=== PATIENT | male | born 1955 | race Caucasian/White ===

== ENCOUNTER 2023-08-05 14:05 | Outpatient (CLI) | payer BC, SELFPAY ==
--- NOTE | 2023-08-05 09:00 | DI.RAD_ITS ---
Exam(s) XR KNEE RT 3V AP,LAT,CARIN EXAM: XR KNEE RT 3V AP,LAT,CARIN CLINICAL HISTORY: RIGHT KNEE PAIN. TECHNIQUE: 2D digital imaging was performed. Three views. COMPARISON: None FINDINGS: BONES: No acute fracture is present. No bony destructive lesion is seen. Small enthesophyte at tibial tubercle. JOINTS: There is severe narrowing of the medial femoral tibial joint, with a [id number] appearance. There is prominent periarticular spurring. Mild spurring at the patellofemoral joint and lateral f emoral tibial joint. No joint effusion is seen. SOFT TISSUE: Posterior calcifications which may represent loose bodies within a popliteal cyst. IMPRESSION: Severe degenerative changes of the medial femoral tibial joint. DATA REPOSITORY: RADIATION DOSE DELIVERED:
--- NOTE | 2023-08-05 09:00 | DI.RAD_ITS ---
Exam(s) XR STANDING ALIGNMENT EXAM: XR STANDING ALIGNMENT CLINICAL HISTORY: BILATERAL KNEE PAIN. TECHNIQUE: 2D digital imaging was performed. Standing AP views were performed from the pelvis throu gh the ankles. COMPARISON: No exams were available for comparison FINDINGS: BONES: No acute fracture is present. No bony destructive lesion is seen. Leg length discrepancy: No significant overall leg length discrepancy. JOINTS: Knees: Severe degenerative changes of the medial femoral tibial joint spaces of both knees, l eft greater than right. Mild varus angulation, left greater than right. The ankle joints are unremarkable. The hip joints are unremarkable. SOFT TISSUE: Normal. IMPRESSION: Severe degenerative changes of both medial femoral tibial joints. No significant leg length discrepancy. DATA REPOSITORY: RADIATION DOSE DELIVERED:
--- NOTE | 2023-08-05 09:00 | DI.RAD_ITS ---
Exam(s) XR KNEE LT 3V AP,LAT,CARIN EXAM: XR KNEE LT 3V AP,LAT,CARIN CLINICAL HISTORY: LEFT KNEE PAIN. TECHNIQUE: 2D digital imaging was performed. Three views. COMPARISON: CR LEFT KNEE 3 VIEW COMPLETE from 11/01/2015 FINDINGS: BONES: No acute fracture is present. No bony destructive lesion is seen. Enthesophyte at tibial tu bercle. JOINTS: There is severe narrowing of the medial femoral tibial joint space, with a [id number] appea cali. There is prominent periarticular spurring as well as varus angulation at the knee. No joint effusion is seen. SOFT TISSUE: Normal. IMPRESSION: Severe degenerative changes of the medial femoral tibial joint. DATA REPOSITORY: RADIATION DOSE DELIVERED:
== END 2023-08-05 14:06 | disposition home or self-care (01) ==
LOC: DIORS 14:05
PROVIDERS: PCP Family Medicine; Visit Provider Physician Assistant
DX: M25.562 Pain in left knee (principal); M25.561 Pain in right knee
CPT/HCPCS: 73562; 77073

== ENCOUNTER 2023-11-15 02:05 | Outpatient (CLI) | payer BC, SELFPAY ==
[2023-11-15 10:35] LABS: HCT 44.5 % (40.0-50.0); HGB 15.3 g/dL (13.5-17.5); MCH 30.2 pg (27.0-33.0); MCHC 34.4 % (32.0-36.0); MCV 88 fL (80-95); MPV 9.5 fL (8.0-11.0); Platelet Count 271 10^3/uL (130-400); RBC 5.06 10^6/uL (4.36-5.78); RDW 11.9 % (11.8-14.1); RDW-SD 38.3 fL; WBC 7.31 10^3/uL (4.4-10.8)
[2023-11-15 10:56] LABS: Anion Gap 11.5 mmol/L (3-11); BUN 29 mg/dL (7-18); CO2 27.5 mmol/L (21.0-32.0); CREATININE 1.2 mg/dL (0.70-1.30); Calcium 9.4 mg/dL (8.5-10.1); Chloride 101 mmol/L (98-107); Estimated GFR 65.87 (mL/min/1.73m2); Glucose 252 mg/dL (74-106); Potassium 3.3 mmol/L (3.5-5.1); Sodium 140 mmol/L (136-145)
[2023-11-16 16:34] LABS: Lab Add On Test DONE
[2023-11-16 16:53] LABS: Hemoglobin A1C 10.6 % (<5.7)
== END 2023-11-15 02:06 | disposition home or self-care (01) ==
LOC: LBO 02:06
PROVIDERS: PCP Family Medicine; Visit Provider Student in an Organized Health Care Education/Training Program
DX: M17.11 Unilateral primary osteoarthritis, right knee (principal); Z01.818 Encounter for other preprocedural examination; E11.9 Type 2 diabetes mellitus without complications
CPT/HCPCS: 36415; 80048; 85027; 83036

== ENCOUNTER 2024-03-23 03:29 | Outpatient (CLI) | payer BC, SELFPAY ==
[2024-03-23 11:37] LABS: HCT 41.8 % (40.0-50.0); HGB 14.3 g/dL (13.5-17.5); MCH 30.4 pg (27.0-33.0); MCHC 34.2 % (32.0-36.0); MCV 89 fL (80-95); MPV 9.6 fL (8.0-11.0); Platelet Count 302 10^3/uL (130-400); RDW 12.4 % (11.8-14.1); RDW-SD 41.1 fL; WBC 6.62 10^3/uL (4.4-10.8)
[2024-03-23 12:14] LABS: Anion Gap 7.9 mmol/L (3-11); BUN 24 mg/dL (7-18); CO2 31.1 mmol/L (21.0-32.0); CREATININE 1.1 mg/dL (0.70-1.30); Calcium 9.5 mg/dL (8.5-10.1); Chloride 103 mmol/L (98-107); Estimated GFR 73.12 (mL/min/1.73m2); Glucose 99 mg/dL (74-106); Potassium 3.3 mmol/L (3.5-5.1); Sodium 142 mmol/L (136-145)
== END 2024-03-23 03:30 | disposition home or self-care (01) ==
LOC: LBO 03:29
PROVIDERS: PCP Family Medicine; Visit Provider Student in an Organized Health Care Education/Training Program
DX: M17.11 Unilateral primary osteoarthritis, right knee (principal); Z01.818 Encounter for other preprocedural examination
CPT/HCPCS: 36415; 80048; 85027

== ENCOUNTER 2024-03-31 05:57 | Day surgery (SDC) | payer BC, SELFPAY ==
[2024-03-31] VITALS (24 sets, daily range): BP systolic 137–180; BP diastolic 70–89; PULSE 58–72; RESP 9–20; TEMP 36.3–36.7; O2SAT 93–99; BMI 29.0
[2024-03-31] MEDS: Celecoxib 200 MG CAP 400 MG PO (06:42)
[2024-03-31] MEDS: Gabapentin 300 MG CAP PO (06:42)
[2024-03-31] MEDS: Acetaminophen 500 MG TAB 1000 MG PO (06:43)
[2024-03-31] MEDS: Lactated Ringers 1,000 ML 80 ML IV (07:05)
--- NOTE | 2024-03-31 07:07 | W.ANESPRE ---
General Info Date of Service Date Performed: 03/31/24 Height: 5 ft 9 in Weight: 89 kg Body Mass Index (BMI): 29.0 Surgical Procedure: Operation Date: 03/31/24 07:40 Proposed Procedure Side Surgeon p Knee Total Arthroplasty, Cementless CR Right Lloyd Marsh MD Actual Procedure Side Surgeon p Knee Total Arthroplasty, Cementless CR Right Lloyd Marsh MD Pre-Op Diagnosis Post-Op Diagnosis Osteoarthritis of right knee Meds Allergies and Home Medications Allergies Allergy/AdvReac Type Severity Reaction Status Date / Time No Known Allergies Allergy Verified 03/31/24 06:34 Home Medication ?Medication ?Instructions ?Recorded ascorbic acid (vitamin C) 500 mg 500 mg PO DAILY 01/06/13 tablet (Vitamin C) multivitamin 1 ea PO DAILY 01/06/13 resveratrol 100 mg capsule 100 mg PO DAILY 05/05/13 amlodipine 10 mg tablet 10 mg PO DAILY #90 tab-caps 12/03/16 atorvastatin 20 mg tablet 20 mg PO DAILY 08/05/23 chlorthalidone 25 mg tablet 25 mg PO DAILY 08/05/23 docusate sodium 100 mg capsule 100 mg PO DAILY 08/05/23 levothyroxine 300 mcg tablet 300 mcg PO DAILY 08/05/23 losartan 100 mg tablet 100 mg PO DAILY 08/05/23 aspirin 325 mg tablet 325 mg PO DAILY 11/15/23 coenzyme Q10 10 mg capsule (Co 10 mg PO ONCE 11/15/23 Q-10) metformin 1,000 mg tablet 1,000 mg PO BID 03/18/24 tirzepatide 2.5 mg/0.5 mL 2.5 mg subcut QWEEK 03/18/24 subcutaneous pen injector acetaminophen 500 mg capsule 500 mg PO DAILY PRN 03/23/24 alpha lipoic acid 300 mg capsule 300 mg PO DAILY 03/23/24 benfotiamine 150 mg capsule 150 mg PO DAILY 03/23/24 chromium picolinate 200 mcg tablet 200 mcg PO DAILY 03/23/24 ibuprofen 200 mg tablet 200 mg PO Q6H PRN 03/23/24 mecobalamin (vitamin B12) 1,000 1,000 mcg PO DAILY 03/23/24 mcg chewable tablet (B12 Active) melatonin 10 mg capsule 10 mg PO HS PRN 03/23/24 milk thistle 175 mg tablet 175 mg PO DAILY 03/23/24 Current Visit Medications: Current Medications Generic Name Dose Route Start Last Admin Trade Name Carmen PRN Reason Stop Dose Admin Acetaminophen 1,000 mg 03/31/24 06:00 03/31/24 06:43 Acetaminophen 500 Mg Tab PO 04/29/24 23:59 1,000 mg PREOP GLADYS Administration Celecoxib 400 mg 03/31/24 06:00 03/31/24 06:42 Celecoxib 200 Mg Cap PO 04/29/24 23:59 400 mg PREOP GLADYS Administration Gabapentin 300 mg 03/31/24 06:00 03/31/24 06:42 Gabapentin 300 Mg Cap PO 04/29/24 23:59 300 mg PREOP GLADYS Administration Ringer's Solution 1,000 mls @ 80 mls/hr 03/31/24 06:00 IV 04/29/24 23:59 INFUSION GLADYS Cefazolin Sodium/Dextrose 2 gm in 50 mls @ 100 mls/hr 03/31/24 06:00 Ancef Duplex IVPB 04/29/24 23:59 PREOP GLADYS Tranexamic Acid/Sodium Chloride 1,000 mg in 100 mls @ 600 mls/hr 03/31/24 06:00 IVPB 04/29/24 23:59 PREOP GLADYS IV Miscellaneous Supplies 1 each 03/31/24 06:00 Iv Access IV 04/29/24 23:59 DIRECTED GLADYS Sodium Chloride 0 ml 03/31/24 06:00 Normal Saline Flush 10 Ml Syr IV 04/29/24 23:59 PRN PRN Sodium Chloride 0 ml 03/31/24 06:00 Normal Saline 10 Ml Vial IJ 04/29/24 23:59 DIRECTED PRN Sterile Water 0 ml 03/31/24 06:00 Water,Injection,Sterile 10 Ml Vial IJ 04/29/24 23:59 DIRECTED PRN PFSH Active Problems Active Problems: Problem Status Onset Code Diabetes Chronic E11.9 Essential hypertension Acute 03/31/13 I10 Osteoarthritis of left knee Acute M17.12 Osteoarthritis of right knee Acute M17.11 Medical History Medical History Tubular adenoma 06/12; 2 tubular adenomas Sleep apnea (05/24/14) Polyp of colon 06/12; 2 tubular adenomas Nevus, 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 EARL Repair of inguinal hernia DR. LOCKE Excision, Skin Mass Colonoscopy - IV Sedation 06/17/2006 Tobacco Smoking/Tobacco Use Status: Former Tobacco Use Alcohol Alcohol Intake: current Alcohol intake frequency: holidays/special occasions only Substance Use Substance use: Never Substance use type: does not use Vital Signs and Lab Results Vital Signs Most Recent Vital Signs in EMR: Most Recent Vital Signs Temp Pulse Resp BP Pulse Ox 36.7 C 72 16 137/71 99 03/31/24 06:10 03/31/24 06:10 03/31/24 06:10 03/31/24 06:10 03/31/24 06:10 Point of Care Results Point of Care Results: Finger Stick Blood Glucose 104 03/31/24 06:47 Lab Results Blood Type / Crossmatch: No Data to Display Complete Blood Count: White Blood Count 6.62 10^3/uL (4.4-10.8) 03/23/24 11:16 Red Blood Count 4.70 10^6/uL (4.36-5.78) 03/23/24 11:16 Hemoglobin 14.3 g/dL (13.5-17.5) 03/23/24 11:16 Hematocrit 41.8 % (40.0-50.0) 03/23/24 11:16 Platelet Count 302 10^3/uL (130-400) 03/23/24 11:16 Complete Metabolic Panel: Sodium 142 mmol/L (136-145) 03/23/24 11:16 Potassium 3.3 mmol/L (3.5-5.1) L 03/23/24 11:16 Chloride 103 mmol/L (98-107) 03/23/24 11:16 Carbon Dioxide 31.1 mmol/L (21.0-32.0) 03/23/24 11:16 BUN 24 mg/dL (7-18) H 03/23/24 11:16 Creatinine 1.1 mg/dL (0.70-1.30) 03/23/24 11:16 Est GFR (CKD-EPI 2020) 73.12 (mL/min/1.73m2) 03/23/24 11:16 Calcium 9.5 mg/dL (8.5-10.1) 03/23/24 11:16 Glucose 99 mg/dL (74-106) 03/23/24 11:16 Liver Function Panel: No Data to Display Coagulation Panel: No Data to Display Cardiac Panel: No Data to Display Arterial Blood Gas: No Data to Display Venous Blood Gas: No Data to Display Pancreas Panel: No Data to Display Thyroid Panel: No Data to Display Infectious Disease: No Data to Display Blood Cultures: No Data to Display Toxicology Panel: No Data to Display Anesthesia Assessment and Plan Anesthesia History Personal History: No History of Anesthesia Complications Family History: No Family History of Anesthesia Complications Exercise Tolerance Exercise Tolerance: Metabolic Equivalents>4 Pertinent Negatives Pertinent Negatives: No Symptoms of GERD Cardiac & Pulmonary Exam Cardiac Exam: Normal S1/S2 Heart Sounds Pulmonary Exam: Clear Bilateral Breath Sounds Implantable Cardiac Device Does patient have a Pacemaker or an ICD?: No Airway Exam Known Difficult Airway: No Mallampati Class: 1 Mouth Opening: Normal (> 3cm) Thyromental Distance: Greater than 3 cm Neck Range of Motion: Full ROM Neck Circumference: Normal Teeth Condition: Normal Dentition ASA Classification ASA Score: ASA 2 Emergency Case?: No NPO Status NPO Status: NPO Clears >2 hours, Solids >8 hours Anesthesia Plan Resuscitation Status: Full Code Anesthesia Technique: Spinal Anesthesia Airway Planned: Natural Airway Pain Management: Surgeon and patient request nerve block Monitors Used: Standard Monitors
--- NOTE | 2024-03-31 07:20 | DSE_ITS ---
Date of service: 03/31/24 Time of Service: 07:26 Discharge Plan Disposition Patient Disposition: Home Condition: Good Discharge Details Reason For Visit: Left knee DJD Attending Provider: Lloyd Marsh Primary Care Provider: Kam Parker Home Meds and New Rx's Prescriptions: New acetaminophen 500 mg tablet 1,000 mg PO Q8H PRN Qty: 90 0RF Rx Instructions: Take two tablets up to every 8 hours as needed for pain docusate sodium [Colace] 100 mg capsule 100 mg PO BID Qty: 30 0RF pantoprazole 40 mg tablet,delayed release (DR/EC) 40 mg PO DAILY Qty: 14 0RF gabapentin 300 mg capsule 300 mg PO QHS Qty: 14 0RF Rx Instructions: Take one tablet at bedtime oxycodone 5 mg tablet 5 mg PO Q4H PRNQty: 18 0RF Rx Instructions: Take one tablet up to every 4 hours as needed for severe postoperative pain Continued coenzyme Q10 [Co Q-10] 10 mg capsule 10 mg PO ONCE aspirin 325 mg tablet 325 mg PO DAILY mecobalamin (vitamin B12) [B12 Active] 1,000 mcg tablet,chewable 1,000 mcg PO DAILY melatonin 10 mg capsule 10 mg PO HS PRN benfotiamine 150 mg capsule 150 mg PO DAILY milk thistle 175 mg tablet 175 mg PO DAILY Rx Instructions: give with meal/snack alpha lipoic acid 300 mg capsule 300 mg PO DAILY chromium picolinate 200 mcg tablet 200 mcg PO DAILY levothyroxine 300 mcg tablet 300 mcg PO DAILY docusate sodium 100 mg capsule 100 mg PO DAILY atorvastatin 20 mg tablet 20 mg PO DAILY chlorthalidone 25 mg tablet 25 mg PO DAILY losartan 100 mg tablet 100 mg PO DAILY ascorbic acid (vitamin C) [Vitamin C] 500 MG tablet 500 mg PO DAILY multivitamin 1 EACH capsule 1 ea PO DAILY resveratrol 100 MG capsule 100 mg PO DAILY amlodipine 10 MG tablet 10 mg PO DAILY Qty: 90 metformin 1,000 mg tablet 1,000 mg PO BID tirzepatide 2.5 mg/0.5 mL pen injector 2.5 mg subcut QWEEK Rx Instructions: for 4 weeks Discontinued ibuprofen 200 mg tablet 200 mg PO Q6H PRN acetaminophen 500 mg capsule 500 mg PO DAILY PRN No Action meloxicam 15 mg tablet 15 mg PO DAILY Qty: 30 0RF Discharge Instructions Additional Instructions: Total Knee Discharge Instructions Activity: The most important activity is to walk and to work on gentle motion (both flexion and extension). You should try to take short walks a few times a day. It is important that when resting you work on keeping the knee straight. Avoid putting a pillow behind the knee as this will encourage flexion. Work on range of motion exercises as provided by Physical Therapy. - Start outpatient physical therapy within 2 weeks. - You should wear the CHUY hose on both legs for 2 weeks. You may remove these at night. You may also use any compression sock in place of the CHUY hose. - Utilize [employer] to review exercises, see videos on exercises and obtain basic information pertaining to your surgery and your recovery. Dressing: Remove the Avni wrap by 2 days after your surgery and put on the CHUY stocking given to you from the hospital. Keep the surgical dressing (underneath the AVNI wrap) in place for at least one week. After the first week it may be removed and replaced with light gauze and tape or nothing. The wound and dressing may get wet after 3 days but avoid soaking the dressing or otherwise it will need to be changed. Many people prefer covering the dressing with cling wrap (saran wrap) to minimize it from getting soaked. If it gets wet, just pat dry. If it starts to peel off then it will need to be changed. Medications: - You should take Tylenol and anti-inflammatory Celebrex as your primary pain control medications. If the Celebrex is too expensive or not covered, please call the office for another alternative (Advil/Ibuprofen or Naproxen/Aleve) - You have been prescribed a stronger pain medication Oxycodone for breakthrough pain, take as needed as prescribed. - You have also been prescribed a stomach acid reduction agent Pantoprozole to help reduce stomach acid and reflux. - You have been prescribed Gabapentin to take at night for restlessness and nerve pain. - You will continue to take your daily Aspirin 325mg once a day for DVT prevention unless instructed otherwise. - If you have constipation you should take Colace (which has been prescribed) or Miralax (which is available [id number]). It takes most people 3-4 days to have a bowel movement. Follow-up: 2 weeks If you have any acute concerns or questions, please do not hesitate to contact the office at [phone]. You may contact Dr. Marsh with any questions after hours through the hospital at [phone] or on his cell phone at [phone]. Stand Alone Forms: Anesthesia Discharge InstAmy, Nerve Block Instructions, Paula Sahni ([facility]) Referrals: Lloyd Marsh MD [ [facility] STAFF PHYSICIAN] - 04/13/24 10:00 am Equipment/Supplies: Walker Activity:: Elevate Remove Dressings/Wound Care:: Do Not Remove Shower/Bathe:: Cover Diet:: As Tolerated Discharge Orders Discharge Orders: Discharge Order (Routine); Ordered 03/31/24 Ordered By: Meme Jennings Discharge Data Discharge Date/Time-TO BE ENTERED AT DEPARTURE: 03/31/24 12:35 DS: Summary Time Spent with Patient providing and/or coordinating discharge services: Less than 30 minutes Status at Discharge Functional status at discharge: uses cane/walker Overall status at discharge: patient is progressing back to baseline Mental Status: mental status grossly normal Speech and Movement: speech and movement normal Mood: congruent mood Affect: normal affect Quality:SDOH Health Related Social Needs: No Data to Display Exam Psych Mental Status: mental status grossly normal Speech and Movement: speech and movement normal Mood: congruent mood Affect: normal affect DS: Data Vitals/I&O Vitals and I&O: Vital Signs Temperature 98.1 F 03/31/24 06:10 Pulse 72 03/31/24 06:10 Pulse Rhythm Regular 03/31/24 06:10 Respiratory Rate 16 03/31/24 06:10 Respiratory Depth Normal 03/31/24 06:10 Blood Pressure 137/71 03/31/24 06:10 Pulse Oximetry 99 03/31/24 06:10 Oxygen Delivery Method Room Air 03/31/24 06:10 Oxygen Flow Rate 0 03/31/24 06:10 Pain Level 3 03/31/24 06:10 Intake & Output 03/30/24 03/30/24 03/31/24 11:59 23:59 11:59 Weight 192 lb 15.988 oz 196 lb 3.382 oz PFSH All Active Problems (Updated 03/31/24 @ 15:30 by Kyle Diaz RN) History of total right knee replacement (Acute 03/31/24) Diabetes (Chronic) Essential hypertension (Acute 03/31/13) Osteoarthritis of left knee (Acute) Steroid injection: 08/05/2023 Medical History (Updated 03/31/24 @ 15:30 by Kyle Diaz RN) Tubular adenoma 06/12; 2 tubular adenomas Sleep apnea (05/24/14) Polyp of colon 06/12; 2 tubular adenomas Nevus, 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 EARL Repair of inguinal hernia DR. LOCKE Excision, Skin Mass Colonoscopy - IV Sedation 06/17/2006 Family History Mother Heart disease CABG Father Hypertensive disorder, systemic arterial Hyperlipidemia Brother Personal history of malignant neoplasm PROSTATE Brother Parkinson's disease Brother No problems noted. Grandfather Heart disease Grandfather No problems noted. Grandmother Heart disease Grandmother Hypertensive disorder, systemic arterial Heart disease Social History Smoking/Tobacco Use Status: Former Tobacco Use Quit Date: 07/01/95 Smoking risk assessment performed?: Yes Alcohol Intake: current Alcohol Intake frequency: holidays/special occasions only Drug use: Never Substance use type: does not use Housing: house Additional Social history: [facility] Time Spent with Patient Time Spent with Patient: <45 minutes Time was spent: preparing to see the patient(eg.review tests), obtaining and/or reviewing separately otained hiistory and indepentently interpreting results
[2024-03-31] MEDS: ceFAZolin 2 GM/50 ML BAG IVPB (07:34)
[2024-03-31] MEDS: TRANEXAMIC ACID/SOD. CHL. 1,000 MG/100 ML BAG 600 MG IVPB (07:48)
--- NOTE | 2024-03-31 09:11 | W.PM.OP ---
Date of service: 03/31/24 Time of Service: 07:45 Operative Note Operative Note DATE OF PROCEDURE: 03/31/24 PRE-OP DIAGNOSIS: Right Knee Osteoarthritis POST-OP DIAGNOSIS: same PROCEDURE: Right Total Knee Replacement SURGEON: Lloyd Marsh PARTNERSHIP MARKETING MANAGER: Meme Jennings ANESTHESIA TYPE: Spinal Refer to Anesthesia Record ESTIMATED BLOOD LOSS: 100 PATHOLOGY: none sent TOURNIQUET TIME: 0 COMPLICATIONS: None Patient was transported to: PACU Patient's condition: stable Implants: 1. Depuy Attune Cementless Cruciate Retaining Femoral Component, Size 7 2. Depuy Attune Cementless Fixed Bearing Tibial Component, Size 6 3. Depuy Attune 7x7 CR/FB Poly 4. Depuy Attune Patellar Component, Size 38 Indications: I have seen Dilip in clinic for symptoms of knee arthritis, confirmed with radiographic findings. He has exhausted nonoperative methods and was having significant limitations in daily function and desired better function and less pain. I discussed the technical details of a knee replacement. I explained the risks of the procedure to include, but not limited to, bleeding, infection, pain, stiffness, fracture, damage to nerves and vessels, damage to muscles and tendons, loosening, need for repeat procedure, blood clot and cardiopulmonary demise. Despite these risks, Dilip elected to proceed. Findings: There was significant signs of arthritis throughout the knee, mostly in the medial compartment. Procedure Description: Dilip was greeted in the preoperative holding area where the correct side was identified and marked. The consent was reviewed with the patient and signed. The history and physical was updated. All questions were answered. Preoperative medications were administered: Acetaminophen 1000mg, Celebrex 400mg, and Gabapentin 300mg. An adductor canal block was then administered by the anesthesia team in the PACU. Dilip was taken back to the operating room. A spinal anesthestic was then administered. The patient was placed into the supine position on the operating room table. A nonsterile tourniquet was placed high onto the leg but only used for cementing. Posts were placed for positioning during the procedure. All bony prominences were well padded. Prophylactic antibiotics in the form of Cefazolin were administered. 1g of Tranxemic Acid was given intravenously within 30 minutes of incision. The right leg was then prepped with Chloraprep and draped in a standard fashion with impervious stockinette. A second prep with Chloraprep was performed prior to application of Iodine impregnated skin protection. A timeout to confirm correct identity, side and site, procedure, allergies, anesthesia, and medical concerns was performed. With the knee in some flexion, a midline incision was made overlying the knee. Full thickness skin flaps were raised once the extensor mechanism was encountered. These were raised medially and laterally. Any bleeding was controlled with electrocautery. Once the extensor mechanism was fully exposed, a medial parapatellar arthrotomy was performed in a flexed position. All bleeding from the arthrotomy and the geniculate arteries was coagulated. A medial subperiosteal peel was performed with electrocautery to the midcoronal plane. Due to the significant varus deformity the entire medial tibial plateau was exposed. The fat pad was removed while keeping the patellar tendon protected. The anterior distal femur synovium was removed for later visualization. The ACL and PCL were resected and the anterior horn of the lateral meniscus was transected. The knee was then flexed with the patella everted. Large osteophytes from the tibia were removed. Large osteophytes from the femur were removed. Using a step drill, and based on preoperative templating, the femoral canal was entered. This was done with a step drill without any difficulty. The intramedullary distal femoral cut guide was inserted, set to a 5 degree valgus cut and 9mm cut thickness. The distal femoral cut guide was then held in position and pinned. With the soft tissues protected, the distal cut was performed. This was passed over a few times to ensure a planar cut. I then turned attention to the tibia. The extramedullary guide was placed onto the leg. The distal aspect was slid medial to adjust for position of center of ankle and stay in line with shaft of the tibia. Approximately 3-5 degrees of posterior slope was kept in the proximal cutting guide. The center of the guide was aligned with the PCL. The stylus was used to assess cut thickness. The medial side, most involved side, was set for a 4mm cut, corresponding to 9mm laterally. This was then held in position and pinned into place with 2 additional pins and a cross pin for stability. The medial and lateral collateral ligaments were protected and the cut was performed. With this completed, it was assessed and noted to be of appropriate dimensions. The guide was removed. A spacer block was inserted and the knee was brought into extension. The 6mm spacer block provided full extension, without hyperextension and with stability of both the medial and lateral collateral ligaments was assessed. The pins from the femur and the tibia were then removed. The distal femur was then sized. The anterior stylus was placed onto the lateral ridge of the anterior femur. This indicated a size 7 femur. The external rotation of the guide was adjusted to 3 degrees to match the epicondylar axis, perpendicular to Judi?s line. The 4-in-1 cutting guide was the placed. The posterior medial femur cut was evaluated and appeared of good thickness. The spacer block was inserted underneath the cutting guide and stability was confirmed in 90 degrees of flexion. An ish wing was used to confirm appropriate position of the anterior cut to avoid notching. This cutting guide was ensured to be flush on the cut surface and then pinned into place with headed pins. While protecting the soft tissues, quad tendon, and collateral ligaments, the anterior and posterior cuts were performed with a saw. The central two pins were removed and the posterior and anterior chamfers were cut next. The notch-cutting guide was placed. This was pinned to lateralize the femoral component as much as possible while keeping it flush on the cut surface. This was then pinned into position. A reciprocating saw was used to make the notch cut. A rasp smoothed the cut surfaces. The medial and lateral menisci were removed. A trial femoral component was then inserted, impacted down to the cut surfaces, and the lug holes were drilled. A provisional trial tibial component was placed and the knee was brought through range of motion. The polyethylene was trialed until there was good flexion and extension with excellent stability to the medial and lateral collaterals. The patella was tracking without thumbs. A size 7mm polyethylene component provided the best range of motion and stability with less than 2mm gapping with medial and lateral stress and full extension without significant hyperextension. The tibial cut surface was fully exposed. The tibia was then sized as a 6. The tibia had been previously marked during trialing to correspond to the center of the tibial component to help with rotation. The trial was aligned to this dilip, approximately rotated to the medial 1/3rd of the tibial tubercle. The trial was pinned into place. The tibia was prepared with a reamer and a keel punch and lug holes. The knee was then brought into extension and the patella was measured as 26mm. Using the patellar clamp and cut guide, this was resected to a flat surface with at least 13mm of thickness remaining. The size 38 patella fit the best. This was oriented and then clamped into position. The lugs were drilled. The trial components were removed. The final components were opened on the back table. The periosteal and capsular tissues, especially posteriorly, around the knee were then systematically injected with a periarticular cocktail consisting of 246mg of Ropivacaine, 0.5mg of Epinephrine, 0.08mg of Clonidine, and 30mg of Ketorolac, diluted to 100cc. On the back table, with the implants opened, the cement was mixed. One batch of high viscosity cement was prepared with vacuum assistance. After the cement was ready a small amount was placed on the cut surface of the patella and the patellar button was clamped into position and held. While the cement was hardening, the cementless knee components were placed. Starting with the tibial component, the tibia was subluxed anteriorly and the lug holes of the component were lined up. The tibia was then impacted with an impactor and mallet until the tibial component was in contact with the tibia. The final polyethylene component was inserted. Then, the femoral component was inserted. The lug holes were aligned and the component was impacted into position. The knee was irrigated with Surgiphor Betadine solution. This was allowed to sit in the knee for 3 minutes and then it was irrigated out with saline. After the cement had finally cured, approximately 15min, the clamp was removed from the patella and the knee was taken through range of motion. The patella was tracking with a no-thumbs technique. The capsule was then reapproximated with a No. 1 Vicryl at multiple locations. The capsule was finally closed with a No. 2 Stratafix, barbed suture. The second dosing of 1g TXA was started. Deep tissues were then reapproximated with 0 Vicryl and 2-0 Vicryl. The skin was closed with a running 3-0 Monocryl in a subcuticular fashion. This was reinforced with skin glue. A Mepilex silver dressing was applied along with a [id number] LINDA wrap. A CryoCuff was applied. Dilip was transferred to the hospital bed without difficulty an suffering no apparent complication. Dilip has a good prognosis. Physical therapy will start today and without restrictions, weight-bearing as tolerated. His home dose of Aspirin 325mg daily will be used for DVT prophylaxis.
[2024-03-31] MEDS: Normal Saline 10 ML VIAL IJ (09:29)
[2024-03-31] MEDS: HYDROmorphone 2 MG/ML SYR IVP ×2 (09:29→10:04)
--- NOTE | 2024-03-31 10:31 | PT.INIE ---
PT Notes Visit Reasons: Left knee DJD Physical Therapy Day Surgery Initial Evaluation Date: 03-31-2024 Referring Doctor: Dr Marsh PT Orders: PT CONSULT: PT evaluation s/p ortho surgery Precautions: WBAT RLE, Patient Profile/Admitting Diagnosis: Pt is 68 yo male presenting s/p elective Right TKA by Dr Marsh on 03-31-2024 under spinal anesthesia PMHX: OA B knees,HTN, DM Social History/Home Situation: lives with in 2 story home with 2 steps to enterwith no railing. His bedroom and office are on the second floor. His only bathroom is on the first floor. He has 13 steps with left rail to ascend the stairs. He reports he will be staying on the first floor to be closer to the bathroom. He reports being an active walker and swimmer as well as calisthenics. Equipment Owned/DME: no equipment/ fitted and issued for FWW with 5wheels Subjective: Pt reports foggy sensation but no dizziness. Pt reports he has a circular driveway which he will be able to walk. Objective: General Observation: Awake male semi-reclined on stretcher with CryoCuff to right knee. Mental Status: Alert and oriented x 4 Pain: right knee 2/10 with ambulation after medication; prior to medication patient reported to nurse 4?5/10 ROM: Right Upper Extremity: WNL Left Upper Extremity: WNL Right Lower Extremity: hip and ankle WNL; knee 5-98 degrees Left Lower Extremity: WNL Strength: Right Upper Extremity: 5/5 Left Upper Extremity: 5/5 Right Lower Extremity: hip 3/5 ,knee extension 3 -/5, flexion 3 -/5 ankle 4/5; patient demonstrates slight quad lag with straight leg raise in limited range. Patient demonstrates compensatory use of glutes and hamstrings during quad set. Left Lower Extremity: 5/5 Sensation:intact Bed Mobility/Transfers: Supine to sit independent Sit to stand independent Stand to sit independent Bed to chair modified independent with FWW Gait: Ambulated with FWW supervision 150 feet reciprocal pattern with slight antalgic gait on the right. Stairs: 2 stairs with rolling walker placed on top step ascending with supervision step to pattern; descending step to pattern patient utilized rail for first step to simulate door frame at home and then FWW for second step Balance: Static Sitting: Normal Dynamic Sitting: Good Static Standing: Good Dynamic Standing: Good with FWW Special Tests: Mobility Limitations Standardized Measure [facility] 6 clicks Basic Mobility Inpatient Short Form: Raw Score: 23 CMS Score: 11.20% Informed Consent/Education: Patient instructed in purpose of PT consult. Packet containing TKA exercise protocol has been given to patient. Education and training on initial set of exercises that can be done at home have been completed with patient. Assessment: Patient presents with clinical signs and symptoms consistent with current/admitting diagnoses that have resulted to mobility limitations, gait instability, generalized weakness, and impairment of motor control as demonstrated by the following impairment level findings: 1. Decreased strength to right knee major muscle groups 2. Impaired standing balance 3. Limitation of joint range of motion in right knee Impairments are contributing to the following functional limitations: 1. Inability to safely ambulate without assistive device 2. Increase completion time for mobility ADL performance 3. Increased fall risk Patient is assessed as a low complexity based on the following: History: 68-year-old male with impairment level findings, functional limitations, and past medical history as indicated above Examination: Demonstrable impairment in strength, balance, and mobility level with underlying impairments and functional limitations as documented above Presentation: stable Decision Making: low Goals: N/A. Plan of Care/Treatment Plan: N/A. DISCHARGE RECOMMENDATIONS: Home completing HEP and outpatient PT as scheduled TREATMENT CODE/TIME: 49365 Thank you for the opportunity to participate in the care of this patient. Please sign an return this page within 30 days if you agree with the above POC. Thank you! Physician Signature Date [facility]
[2024-03-31] MEDS: oxyCODONE 5 MG TAB PO (10:43)
--- NOTE | 2024-03-31 11:21 | W.ANESNERVE ---
Nerve Block Single Injection Procedure Date and Time Date Performed: 03/31/24 Procedure Start: 07:15 Location Where Procedure Performed Procedure Location: Day Surgery Unit Reason Performed: Postoperative Analgesia Requesting Provider: Lloyd Marsh Timeout Performed Timeout Performed: Yes Monitoring Used ECG, Blood Pressure, SpO2 and See EMR for corresponding vital signs Sterility Sterility: Hand Hygiene, Surgical Cap, Surgical Mask, Sterile Gloves and Chlorhexidine Sedation Given During Procedure Sedation Given (Indicate Dose Given): No Sedation given Patient Mental Status Patient Mental Status: Awake Nerve Block 1st Nerve Block: Laterality: Right Block Type: Adductor Canal Ultrasound Image Saved?: Yes Needle / Catheter Used: 100mm SonoPlex II Local Anesthetic Bolus (Indicate Dose Given): Lidocaine used for local infiltration of skin, Injected in 3-5ml increments after negative blood aspiration, Bupivacaine 0.25% Dose:: 10ml and Exparel Dose:: 10ml Additives (Indicate Dose Given): None Ultrasound: Sterile probe cover and gel used Nerve Stimulator: Not Used Paresthesia: None Procedure Tolerated: No Complications and Patient tolerated well Procedure Outcome: Successful Performed By: Alvin Rich
--- NOTE | 2024-03-31 14:38 | W.ANESPOSTOP ---
Postoperative Evaluation Date, Time and Location Date Performed: 03/31/24 Time Performed: 10:30 Patient Location: Day Surgery Unit Vital Signs Most Recent Imported Vital Signs: Most Recent Vital Signs Temp Pulse Resp BP Pulse Ox 36.5 C 60 16 151/71 H 96 03/31/24 11:25 03/31/24 11:25 03/31/24 11:25 03/31/24 11:25 03/31/24 11:25 Pain Score Most Recent Pain Score: Most Recent Pain Score Pain Level 2 03/31/24 11:25 Assessment Mental Status: Awake (Alert & Oriented to Patient Baseline) Airway and Respiratory Function: Patent airway with normal (patient baseline) respiratory exam Cardiovascular Function: Hemodynamically Stable Hydration Status: Adequately Hydrated Nausea & Vomiting: No Nausea or Vomiting Pain: Pain is tolerable per patient Peripheral Nerve Block: Regional nerve block not resolved at time of post operative discharge
== END 2024-03-31 12:35 | disposition home or self-care (01) ==
PROVIDERS: PCP Family Medicine; Visit Provider Student in an Organized Health Care Education/Training Program
PROC: (CPT 27447; principal; 2024-03-31 07:30)
DX: M17.11 Unilateral primary osteoarthritis, right knee (principal); I10 Essential (primary) hypertension; E11.9 Type 2 diabetes mellitus without complications; Z79.84 Long term (current) use of oral hypoglycemic drugs
CPT/HCPCS: 27447; 76942; 97161; 97530; C1776; C9290; J0665; J0690; J1100; J1171; J2250; J2401; J2405; J2704

== ENCOUNTER 2024-04-13 11:44 | Outpatient (CLI) | payer BC, MEDICARE, SELFPAY ==
--- NOTE | 2024-04-13 10:51 | DI.RAD_ITS ---
Exam(s) XR KNEE RT 1V XR STANDING ALIGNMENT EXAM: XR STANDING ALIGNMENT and XR knee RT 1 V CLINICAL HISTORY: s/p TKR. TECHNIQUE: 2D digital imaging was performed. Five images were obtained. COMPARISON: CR XR KNEE LT 3V AP,LAT,CARIN from 08/05/2023 CR XR STANDING ALIGNMENT from 08/05/2023 CR XR KNEE RT 3V AP,LAT,CARIN from 08/05/2023 FINDINGS: BONES: The hips are well maintained. The patient now has a right total knee replacement. The orthop edic hardware appears in good position. No suspicious lucencies are seen in or about the orthopedic hardware. There are marked degenerative changes seen in the left knee characterized by joint space n arrowing and osteophytes. The findings are most marked in the medial femoral tibial joint. The ankl es are well maintained.There is no significant leg length discrepancy. SOFT TISSUE: Normal. IMPRESSION: 1. Interval placement of a right total knee replacement. 2. Marked osteoarthritis of the left knee. DATA REPOSITORY: RADIATION DOSE DELIVERED:
== END 2024-04-13 11:45 | disposition home or self-care (01) ==
LOC: DIORS 11:45
PROVIDERS: PCP Family Medicine; Visit Provider Physician Assistant
DX: Z96.651 Presence of right artificial knee joint (principal); Z47.1 Aftercare following joint replacement surgery
CPT/HCPCS: 73560; 77073

== ENCOUNTER 2024-05-11 16:04 | Outpatient (CLI) | payer BC, SELFPAY ==
[2024-05-11 15:25] LABS: HCT 40.7 % (40.0-50.0); HGB 13.8 g/dL (13.5-17.5); MCH 29.9 pg (27.0-33.0); MCHC 33.9 % (32.0-36.0); MCV 88 fL (80-95); Platelet Count 307 10^3/uL (130-400); RBC 4.62 10^6/uL (4.36-5.78); RDW 12.9 % (11.8-14.1); RDW-SD 41.6 fL; WBC 7.25 10^3/uL (4.4-10.8)
[2024-05-11 16:12] LABS: Anion Gap 10.5 mmol/L (3-11); BUN 29 mg/dL (7-18); CO2 27.5 mmol/L (21.0-32.0); CREATININE 1.1 mg/dL (0.70-1.30); Calcium 9.4 mg/dL (8.5-10.1); Chloride 106 mmol/L (98-107); Estimated GFR 73.12 (mL/min/1.73m2); Glucose 109 mg/dL (74-106); Potassium 3.4 mmol/L (3.5-5.1); Sodium 144 mmol/L (136-145)
== END 2024-05-11 16:05 | disposition home or self-care (01) ==
LOC: LBO 16:04
PROVIDERS: PCP Family Medicine; Visit Provider Student in an Organized Health Care Education/Training Program
DX: M17.12 Unilateral primary osteoarthritis, left knee (principal); Z01.818 Encounter for other preprocedural examination
CPT/HCPCS: 36415; 80048; 85027

== ENCOUNTER 2024-05-20 10:48 | Day surgery (SDC) | payer BC, SELFPAY ==
[2024-05-20] VITALS (20 sets, daily range): BP systolic 135–162; BP diastolic 73–90; PULSE 72–83; RESP 11–22; TEMP 36–36.7; O2SAT 94–98; BMI 27.4
--- NOTE | 2024-05-20 10:09 | PDOC.DSDIS_ITS ---
Date of service: 05/20/24 Time of Service: 10:09 Discharge Plan Disposition Patient Disposition: Home Condition: Good Discharge Details Reason For Visit: L TKR Attending Provider: Lloyd Marsh Primary Care Provider: Kam Parker [place] Meds and New Rx's Prescriptions: New acetaminophen 500 mg tablet 1,000 mg PO TID Qty: 90 3RF celecoxib 200 mg capsule 200 mg PO BID Qty: 60 0RF dexamethasone 4 mg tablet 4 mg PO DAILY Qty: 2 0RF gabapentin 300 mg capsule 300 mg PO QHS Qty: 14 0RF oxycodone 5 mg tablet 5 mg PO Q4H MDD 6 tabs PRN (Reason: pain) Qty: 20 0RF pantoprazole 40 mg tablet,delayed release (DR/EC) 40 mg PO DAILY Qty: 30 0RF Continued coenzyme Q10 [Co Q-10] 10 mg capsule 10 mg PO ONCE aspirin 325 mg tablet 325 mg PO DAILY mecobalamin (vitamin B12) [B12 Active] 1,000 mcg tablet,chewable 1,000 mcg PO DAILY melatonin 10 mg capsule 10 mg PO HS PRN benfotiamine 150 mg capsule 150 mg PO DAILY milk thistle 175 mg tablet 175 mg PO DAILY Rx Instructions: give with meal/snack alpha lipoic acid 300 mg capsule 300 mg PO DAILY chromium picolinate 200 mcg tablet 200 mcg PO DAILY levothyroxine 300 mcg tablet 300 mcg PO DAILY docusate sodium 100 mg capsule 100 mg PO DAILY atorvastatin 20 mg tablet 20 mg PO DAILY chlorthalidone 25 mg tablet 25 mg PO DAILY losartan 100 mg tablet 100 mg PO DAILY ascorbic acid (vitamin C) [Vitamin C] 500 MG tablet 500 mg PO DAILY multivitamin 1 EACH capsule 1 ea PO DAILY resveratrol 100 MG capsule 100 mg PO DAILY amlodipine 10 MG tablet 10 mg PO DAILY Qty: 90 metformin 1,000 mg tablet 1,000 mg PO BID tirzepatide 2.5 mg/0.5 mL pen injector 2.5 mg subcut QWEEK Rx Instructions: for 4 weeks Discontinued acetaminophen 500 mg tablet 1,000 mg PO Q8H PRN Qty: 90 0RF Rx Instructions: Take two tablets up to every 8 hours as needed for pain Discharge Instructions Additional Instructions: Total Knee Discharge Instructions Activity: The most important activity is to walk and to work on gentle motion (both flexion and extension). You should try to take short walks a few times a day. It is important that when resting you work on keeping the knee straight. Avoid putting a pillow behind the knee as this will encourage flexion. Work on range of motion exercises as provided by Physical Therapy. - Start outpatient physical therapy within 2 weeks. - You should wear the CHUY hose on both legs for 2 weeks. You may remove these at night. You may also use any compression sock in place of the CHUY hose. - Utilize [employer] to review exercises, see videos on exercises and obtain basic information pertaining to your surgery and your recovery. Dressing: Remove the Avni wrap by 2 days after your surgery and put on the CHUY stocking given to you from the hospital. Keep the surgical dressing (underneath the AVNI wrap) in place for at least one week. After the first week it may be removed and replaced with light gauze and tape or nothing. The wound and dressing may get wet after 3 days but avoid soaking the dressing or otherwise it will need to be changed. Many people prefer covering the dressing with cling wrap (saran wrap) to minimize it from getting soaked. If it gets wet, just pat dry. If it starts to peel off then it will need to be changed. Medications: - You should take Tylenol and anti-inflammatory Celebrex as your primary pain control medications. If the Celebrex is too expensive or not covered, please call the office for another alternative (Advil/Ibuprofen or Naproxen/Aleve) - You have been prescribed a stronger pain medication Oxycodone for breakthrough pain, take as needed as prescribed. - You have also been prescribed a stomach acid reduction agent Pantoprozole to help reduce stomach acid and reflux. - You have been prescribed Gabapentin to take at night for restlessness and nerve pain. - You will be taking your aspirin 325mg for DVT prevention unless instructed otherwise. - You have also been prescribed Decadron to take to control post-operative nausea and pain. You will start this tomorrow. - If you have constipation you should take Colace or Miralax (both over-the- counter). It takes most people 3-4 days to have a bowel movement. Follow-up: 2 weeks If you have any acute concerns or questions, please do not hesitate to contact the office at [phone]. You may contact Dr. Marsh with any questions after hours through the hospital at [phone] or on his cell phone at [phone]. Referrals: Lloyd Marsh MD [ [facility] STAFF PHYSICIAN] - Equipment/Supplies: Walker Activity:: Activity as Tolerated Shower/Bathe:: Cover Diet:: As Tolerated Discharge Orders Discharge Orders: Discharge Order (Routine); Ordered 05/20/24 Ordered By: Kiran Del Valle DS: Diagnosis Discharge Diagnosis (1) Osteoarthritis of left knee: Status: Acute
[2024-05-20] MEDS: Gabapentin 300 MG CAP PO (11:21)
[2024-05-20] MEDS: Celecoxib 200 MG CAP 400 MG PO (11:21)
[2024-05-20] MEDS: Acetaminophen 500 MG TAB 1000 MG PO (11:21)
--- NOTE | 2024-05-20 11:52 | W.ANESPRE ---
General Info Date of Service Date Performed: 05/20/24 Height: 5 ft 9 in Weight: 84.4 kg Body Mass Index (BMI): 27.4 Surgical Procedure: Operation Date: 05/20/24 12:55 Proposed Procedure Side Surgeon p Knee Total Arthroplasty, Cementless CR (7 Femur, 6 Tibia) Left Lloyd Marsh MD Meds Allergies and Home Medications Allergies Allergy/AdvReac Type Severity Reaction Status Date / Time No Known Allergies Allergy Verified 05/20/24 11:09 Home Medication ?Medication ?Instructions ?Recorded ascorbic acid (vitamin C) 500 mg 500 mg PO DAILY 01/06/13 tablet (Vitamin C) multivitamin 1 ea PO DAILY 01/06/13 resveratrol 100 mg capsule 100 mg PO DAILY 05/05/13 amlodipine 10 mg tablet 10 mg PO DAILY #90 tab-caps 12/03/16 atorvastatin 20 mg tablet 20 mg PO DAILY 08/05/23 chlorthalidone 25 mg tablet 25 mg PO DAILY 08/05/23 docusate sodium 100 mg capsule 100 mg PO DAILY 08/05/23 levothyroxine 300 mcg tablet 300 mcg PO DAILY 08/05/23 losartan 100 mg tablet 100 mg PO DAILY 08/05/23 aspirin 325 mg tablet 325 mg PO DAILY 11/15/23 coenzyme Q10 10 mg capsule (Co 10 mg PO ONCE 11/15/23 Q-10) metformin 1,000 mg tablet 1,000 mg PO BID 03/18/24 tirzepatide 2.5 mg/0.5 mL 2.5 mg subcut QWEEK 03/18/24 subcutaneous pen injector alpha lipoic acid 300 mg capsule 300 mg PO DAILY 03/23/24 benfotiamine 150 mg capsule 150 mg PO DAILY 03/23/24 chromium picolinate 200 mcg tablet 200 mcg PO DAILY 03/23/24 mecobalamin (vitamin B12) 1,000 1,000 mcg PO DAILY 03/23/24 mcg chewable tablet (B12 Active) melatonin 10 mg capsule 10 mg PO HS PRN 03/23/24 milk thistle 175 mg tablet 175 mg PO DAILY 03/23/24 acetaminophen 500 mg tablet 1,000 mg (2 x 500 mg) PO TID #90 05/20/24 tabs celecoxib 200 mg capsule 200 mg PO BID #60 caps 05/20/24 dexamethasone 4 mg tablet 4 mg PO DAILY #2 tabs 05/20/24 gabapentin 300 mg capsule 300 mg PO QHS #14 caps 05/20/24 oxycodone 5 mg tablet 5 mg PO Q4H PRN pain #20 tabs 05/20/24 pantoprazole 40 mg tablet,delayed 40 mg PO DAILY #30 tabs 05/20/24 release Current Visit Medications: Current Medications Generic Name Dose Route Start Last Admin Trade Name Freq PRN Reason Stop Dose Admin Acetaminophen 1,000 mg 05/20/24 06:00 05/20/24 11:21 Acetaminophen 500 Mg Tab PO 05/20/24 18:00 1,000 mg PREOP GLADYS Administration Acetaminophen 1,000 mg 05/20/24 10:03 Acetaminophen 500 Mg Tab PO 06/19/24 13:59 TID PRN Analgesia Celecoxib 400 mg 05/20/24 06:00 05/20/24 11:21 Celecoxib 200 Mg Cap PO 05/20/24 18:00 400 mg PREOP GLADYS Administration Docusate Sodium 100 mg 05/20/24 10:03 Docusate Sodium 100 Mg Cap PO 06/19/24 10:02 BID PRN PRN Constipation Gabapentin 300 mg 05/20/24 06:00 05/20/24 11:21 Gabapentin 300 Mg Cap PO 05/20/24 18:00 300 mg PREOP GLADYS Administration Cefazolin Sodium/Dextrose 2 gm in 50 mls @ 100 mls/hr 05/20/24 06:00 Ancef Duplex IVPB 05/20/24 18:00 PREOP GLADYS Tranexamic Acid 1,000 mg/ 110 mls @ 660 mls/hr 05/20/24 06:00 Sodium Chloride IVPB 05/20/24 16:00 PREOP GLADYS Sodium Chloride 1,000 mls @ 30 mls/hr 05/20/24 09:00 Saline 1000ml Bag IV 06/19/24 08:59 [facility] IV Miscellaneous Supplies 1 each 05/20/24 06:00 Iv Access IV 06/18/24 23:59 DIRECTED GLADYS Ondansetron HCl 4 mg 05/20/24 10:03 Ondansetron 4 Mg/2 Ml Vial IVP 06/19/24 10:02 Q6H PRN PRN Nausea Oxycodone HCl 0 mg 05/20/24 10:03 Oxycodone 5 Mg Tab PO 06/19/24 10:02 Q3H PRN PRN Pain Polyethylene Glycol 17 gm 05/20/24 10:03 Polyethylene Glycol 3350 17 Gm Packet PO 06/19/24 10:02 BID PRN PRN Constipation Sodium Chloride 0 ml 05/20/24 06:00 Normal Saline Flush 10 Ml Syr IV 06/18/24 23:59 PRN PRN Sodium Chloride 0 ml 05/20/24 06:00 Normal Saline 10 Ml Vial IJ 06/18/24 23:59 DIRECTED PRN Sterile Water 0 ml 05/20/24 06:00 Water,Injection,Sterile 10 Ml Vial IJ 06/18/24 23:59 DIRECTED PRN PFSH Active Problems Active Problems: Problem Status Onset Code History of total left knee replacement Acute 05/20/24 Z96.652 History of total right knee replacement Acute 03/31/24 Z96.651 Diabetes Chronic E11.9 Essential hypertension Acute 03/31/13 I10 Medical History Medical History Tubular adenoma 06/12; 2 tubular adenomas Sleep apnea (05/24/14) Polyp of colon 06/12; 2 tubular adenomas Nevus, 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 EARL Repair of inguinal hernia DR. LOCKE Excision, Skin Mass Colonoscopy - IV Sedation 06/17/2006 Tobacco Smoking/Tobacco Use Status: Former Tobacco Use Alcohol Alcohol Intake: current Alcohol intake frequency: holidays/special occasions only Substance Use Substance use: Never Substance use type: does not use Vital Signs and Lab Results Vital Signs Most Recent Vital Signs in EMR: Most Recent Vital Signs Temp Pulse Resp BP Pulse Ox 36.2 C L 74 16 149/77 H 98 05/20/24 11:01 05/20/24 11:01 05/20/24 11:01 05/20/24 11:01 05/20/24 11:01 Point of Care Results Point of Care Results: Finger Stick Blood Glucose 123 05/20/24 11:25 Lab Results Blood Type / Crossmatch: No Data to Display Complete Blood Count: White Blood Count 7.25 10^3/uL (4.4-10.8) 05/11/24 15:15 Red Blood Count 4.62 10^6/uL (4.36-5.78) 05/11/24 15:15 Hemoglobin 13.8 g/dL (13.5-17.5) 05/11/24 15:15 Hematocrit 40.7 % (40.0-50.0) 05/11/24 15:15 Platelet Count 307 10^3/uL (130-400) 05/11/24 15:15 Complete Metabolic Panel: Sodium 144 mmol/L (136-145) 05/11/24 15:15 Potassium 3.4 mmol/L (3.5-5.1) L 05/11/24 15:15 Chloride 106 mmol/L (98-107) 05/11/24 15:15 Carbon Dioxide 27.5 mmol/L (21.0-32.0) 05/11/24 15:15 BUN 29 mg/dL (7-18) H 05/11/24 15:15 Creatinine 1.1 mg/dL (0.70-1.30) 05/11/24 15:15 Est GFR (CKD-EPI 2020) 73.12 (mL/min/1.73m2) 05/11/24 15:15 Calcium 9.4 mg/dL (8.5-10.1) 05/11/24 15:15 Glucose 109 mg/dL (74-106) H 05/11/24 15:15 Liver Function Panel: No Data to Display Coagulation Panel: No Data to Display Cardiac Panel: No Data to Display Arterial Blood Gas: No Data to Display Venous Blood Gas: No Data to Display Pancreas Panel: No Data to Display Thyroid Panel: No Data to Display Infectious Disease: No Data to Display Blood Cultures: No Data to Display Toxicology Panel: No Data to Display Anesthesia Assessment and Plan Anesthesia History Personal History: No History of Anesthesia Complications Family History: No Family History of Anesthesia Complications Exercise Tolerance Exercise Tolerance: Metabolic Equivalents>4 Pertinent Negatives Pertinent Negatives: No Symptoms of GERD Cardiac & Pulmonary Exam Cardiac Exam: Normal S1/S2 Heart Sounds Pulmonary Exam: Clear Bilateral Breath Sounds Implantable Cardiac Device Does patient have a Pacemaker or an ICD?: No Airway Exam Known Difficult Airway: No Mallampati Class: 1 Mouth Opening: Normal (> 3cm) Thyromental Distance: Greater than 3 cm Neck Range of Motion: Full ROM Neck Circumference: Normal Teeth Condition: Normal Dentition ASA Classification ASA Score: ASA 2 Emergency Case?: No NPO Status NPO Status: NPO Clears >2 hours, Solids >8 hours Anesthesia Plan Resuscitation Status: Full Code Anesthesia Technique: Spinal Anesthesia Airway Planned: Natural Airway Pain Management: Surgeon and patient request nerve block Monitors Used: Standard Monitors
[2024-05-20] MEDS: Normal Saline 1,000 ML 30 ML IV (11:59)
--- NOTE | 2024-05-20 13:24 | ROE_ITS ---
Operative Note Operative Note PRE-OP DIAGNOSIS: Left Knee Osteoarthritis POST-OP DIAGNOSIS: same PROCEDURE: Left Total Knee Replacement SURGEON: Lloyd Marsh LITHOPRESS OPERATOR: Dilip Del Valle ANESTHESIA TYPE: Spinal Refer to Anesthesia Record ESTIMATED BLOOD LOSS: 100 PATHOLOGY: none sent TOURNIQUET TIME: 0 COMPLICATIONS: None Patient was transported to: PACU Patient's condition: stable Implants: 1. Depuy Attune Cementless Cruciate Retaining Femoral Component, Size 7 2. Depuy Attune Cementless Fixed Bearing Tibial Component, Size 6 3. Depuy Attune 7x6mm CR/FB Poly 4. Depuy Attune Patellar Component, Size 38 Indications: I have seen Dilip in clinic for symptoms of knee arthritis, confirmed with radiographic findings. He has exhausted nonoperative methods and was having significant limitations in daily function and desired better function and less pain. I discussed the technical details of a knee replacement. He had a successful right knee replacement 6 weeks prior. Once again, I explained the risks of the procedure to include, but not limited to, bleeding, infection, pain, stiffness, fracture, damage to nerves and vessels, damage to muscles and tendons, loosening, need for repeat procedure, blood clot and cardiopulmonary demise. Despite these risks, Dilip elected to proceed. Findings: There was significant signs of arthritis throughout the entire knee, but markedly so in the medial compartment. Procedure Description: Dilip was greeted in the preoperative holding area where the correct side was identified and marked. The consent was reviewed with the patient and signed. The history and physical was updated. All questions were answered. Preoperative medications were administered: Acetaminophen 1000mg, Celebrex 400mg, and Gabapentin 300mg. An adductor canal block was then administered by the anesthesia team in the DSU. Dilip was taken back to the operating room. A spinal anesthestic was then administered. The patient was placed into the supine position on the operating room table. Posts were placed for positioning during the procedure. All bony prominences were well padded. Prophylactic antibiotics in the form of Cefazolin were administered. 1g of Tranxemic Acid was given intravenously within 30 minutes of incision. The left leg was then prepped with Chloraprep and draped in a standard fashion with impervious stockinette. A second prep with Chloraprep was performed prior to application of Iodine impregnated skin protection. A timeout to confirm correct identity, side and site, procedure, allergies, anesthesia, and medical concerns was performed. With the knee in some flexion, a midline incision was made overlying the knee. Full thickness skin flaps were raised once the extensor mechanism was encountered. These were raised medially and laterally. Any bleeding was cont rolled with electrocautery. Once the extensor mechanism was fully exposed, a medial parapatellar arthrotomy was performed in a flexed position. All bleeding from the arthrotomy and the geniculate arteries was coagulated. A medial subperiosteal peel was performed with electrocautery to the midcoronal plane. Due to the significant varus deformity the entire medial tibial plateau was exposed. The fat pad was removed while keeping the patellar tendon protected. The anterior distal femur synovium was removed for later visualization. The ACL and PCL were resected and the anterior horn of the lateral meniscus was transected. The knee was then flexed with the patella everted. Large osteophytes from the tibia were removed. Large osteophytes from the femur were removed. Using a step drill, and based on preoperative templating, the femoral canal was entered. This was done with a step drill without any difficulty. The intramedullary distal femoral cut guide was inserted, set to a 5 degree valgus cut and 9mm cut thickness. The distal femoral cut guide was then held in position and pinned. With the soft tissues protected, the distal cut was performed. This was passed over a few times to ensure a planar cut. I then turned attention to the tibia. The extramedullary guide was placed onto the leg. The distal aspect was slid medial to adjust for position of center of ankle and stay in line with shaft of the tibia. Approximately 3-5 degrees of posterior slope was kept in the proximal cutting guide. The center of the guide was aligned with the PCL. The stylus was used to assess cut thickness. The medial side, most involved side, was set for a 4mm cut. This was then held in position and pinned into place with 2 additional pins and a cross pin for stability. The medial and lateral collateral ligaments were protected and the cut was performed. With this completed, it was assessed and noted to be of appropriate dimensions. The guide was removed. A spacer block was inserted and the knee was brought into extension. The 6mm spacer block provided full extension, without hyperextension and with stability of both the medial and lateral collateral ligaments was assessed. The pins from the femur and the tibia were then removed. The distal femur was then sized. The anterior stylus was placed onto the lateral ridge of the anterior femur. This indicated a size 7 femur. The external rotation of the guide was adjusted to 3 degrees to match the epicondylar axis, perpendicular to [place]?s line. The 4-in-1 cutting guide was the placed. The posterior medial femur cut was evaluated and appeared of good thickness. The spacer block was inserted underneath the cutting guide and stability was confirmed in 90 degrees of flexion. An ish wing was used to confirm appropriate position of the anterior cut to avoid notching. This cutting guide was ensured to be flush on the cut surface and then pinned into place with headed pins. While protecting the soft tissues, quad tendon, and collateral ligaments, the anterior and posterior cuts were performed with a saw. The central two pins were removed and the posterior and anterior chamfers were cut next. The notch-cutting guide was placed. This was pinned to lateralize the femoral component as much as possible while keeping it flush on the cut surface. This was then pinned into position. A reciprocating saw was used to make the notch cut. A rasp smoothed the cut surfaces. The medial and lateral menisci were removed. A trial femoral component was then inserted, impacted down to the cut surfaces, and the lug holes were drilled. A provisional trial tibial component was placed and the knee was brought through range of motion. There was noted to be excellent extension and flexion. There was no significant instability. The patella was tracking without thumbs. A size 6mm polyethylene component provided the best range of motion and stability with less than 2mm gapping with medial a nd lateral stress and full extension without significant hyperextension. The tibial cut surface was fully exposed. The tibia was then sized as a 6. The tibia had been previously marked during trialing to correspond to the center of the tibial component to help with rotation. The trial was aligned to this dilip, approximately rotated to the medial 1/3rd of the tibial tubercle. The trial was pinned into place. The tibia was prepared with a reamer and a keel punch and lug holes. The knee was then brought into extension and the patella was measured as 27mm. Using the patellar clamp and cut guide, this was resected to a flat surface with at least 13mm of thickness remaining. The size 38 patella fit the best. This was oriented and then clamped into position. The lugs were drilled. The trial components were removed. The final components were opened on the back table. The periosteal and capsular tissues, especially posteriorly, around the knee were then systematically injected with a periarticular cocktail consisting of 246mg of Ropivacaine, 0.5mg of Epinephrine, 0.08mg of Clonidine, and 30mg of Ketorolac, diluted to 100cc. On the back table, with the implants opened, the cement was mixed. One batch of high viscosity cement was prepared with vacuum assistance. After the cement was ready a small amount was placed on the cut surface of the patella and the patellar button was clamped into position and held. While the cement was hardening, the cementless knee components were placed. Starting with the tibial component, the tibia was subluxed anteriorly and the lug holes of the component were lined up. The tibia was then impacted with an impactor and mallet until the tibial component was in contact with the tibia. The final polyethylene component was inserted. Then, the femoral component was inserted. The lug holes were aligned and the component was impacted into position. The knee was irrigated with Surgiphor Betadine solution. This was allowed to sit in the knee for 3 minutes and then it was irrigated out with saline. After the cement had finally cured, approximately 15min, the clamp was removed from the patella and the knee was taken through range of motion. The patella was tracking with a no-thumbs technique. The capsule was then reapproximated with a No. 1 Vicryl at multiple locations. The capsule was finally closed with a No. 2 Stratafix, barbed suture. The second dosing of 1g TXA was started. Deep tissues were then reapproximated with 0 Vicryl and 2-0 Vicryl. The skin was closed with a running 3-0 Monocryl in a subcuticular fashion. This was reinforced with skin glue. A Mepilex silver dressing was applied along with a [id number] LINDA wrap. A CryoCuff was applied. Dilip was transferred to the hospital bed without difficulty an suffering no apparent complication. Dilip has a good prognosis. Physical therapy will start today and without restrictions, weight-bearing as tolerated. Aspirin 325 mg daily will be used for DVT prophylaxis. Date of Procedure: 05/20/24
--- NOTE | 2024-05-20 13:25 | W.ANESNERVE ---
Nerve Block Single Injection Procedure Date and Time Date Performed: 05/20/24 Procedure Start: 12:34 Location Where Procedure Performed Procedure Location: Day Surgery Unit Reason Performed: Postoperative Analgesia Requesting Provider: Lloyd Marsh Timeout Performed Timeout Performed: Yes Monitoring Used ECG, Blood Pressure, SpO2 and See EMR for corresponding vital signs Sterility Sterility: Hand Hygiene, Surgical Cap, Surgical Mask, Sterile Gloves and Chlorhexidine Sedation Given During Procedure Sedation Given (Indicate Dose Given): Versed IV Dose:: 2mg Patient Mental Status Patient Mental Status: Awake (Patient's present for block) Nerve Block 1st Nerve Block: Laterality: Left Block Type: Adductor Canal Ultrasound Image Saved?: Yes Needle / Catheter Used: 100mm SonoPlex II Local Anesthetic Bolus (Indicate Dose Given): Lidocaine used for local infiltration of skin, Injected in 3-5ml increments after negative blood aspiration and Bupivacaine 0.25% Dose:: 10mL Additives (Indicate Dose Given): None Ultrasound: Sterile probe cover and gel used Nerve Stimulator: Supplement to Ultrasound use and No twitch or parasthesia noted < 0.5 mA Paresthesia: None Procedure Tolerated: No Complications Procedure Outcome: Successful Performed By: Paris Farooq
[2024-05-20] MEDS: ceFAZolin 2 GM/50 ML BAG IVPB (13:28)
--- NOTE | 2024-05-20 15:22 | W.ANESPOSTOP ---
Postoperative Evaluation Date, Time and Location Date Performed: 05/20/24 Time Performed: 15:22 Patient Location: PACU Vital Signs Most Recent Imported Vital Signs: Most Recent Vital Signs Temp Pulse Resp BP Pulse Ox 36.4 C L 72 19 144/73 H 95 05/20/24 15:16 05/20/24 15:16 05/20/24 15:20 05/20/24 15:16 05/20/24 15:20 Pain Score Most Recent Pain Score: Most Recent Pain Score Pain Level 3 05/20/24 15:10 Assessment Mental Status: Awake (Alert & Oriented to Patient Baseline) Airway and Respiratory Function: Patent airway with normal (patient baseline) respiratory exam Cardiovascular Function: Hemodynamically Stable Hydration Status: Adequately Hydrated Nausea & Vomiting: No Nausea or Vomiting Pain: Pain is tolerable per patient Peripheral Nerve Block: Patient did not receive a nerve block
[2024-05-20] MEDS: oxyCODONE 5 MG TAB PO (16:01)
--- NOTE | 2024-05-20 16:23 | PT.INIE ---
PT Notes Visit Reasons: L TKR Physical Therapy Day Surgery Initial Evaluation Date: 05/20/2024 Referring Doctor: JUDAH Jones PT Orders: PT CONSULT: S/P Ortho surgery WBAT on the left LE with AD. Precautions: Patient Profile/Admitting Diagnosis: Kiran is a 68-year-old male with degenerative joint disease of the left knee and status post left total knee arthroplasty on postoperative day 0. PMHX: All Active Problems (Updated 03/31/24 @ 15:30 by Kyle Diaz RN) History of total right knee replacement (Acute 03/31/24) Diabetes (Chronic) Essential hypertension (Acute 03/31/13) Osteoarthritis of left knee (Acute) Steroid injection: 08/05/2023 Medical History (Updated 03/31/24 @ 15:30 by Kyle Diaz RN) Tubular adenoma 06/12; 2 tubular adenomas Sleep apnea (05/24/14) Polyp of colon 06/12; 2 tubular adenomas Nevus, 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 EARL Repair of inguinal hernia DR. LOCKE Excision, Skin Mass Colonoscopy - IV Sedation 06/17/2006 Social History/Home Situation: Lives with Chucky petr private home with 2 steps to enter. Son will assist and support stair negotiation at home tonight upon discharge from hospital. Equipment Owned/DME: [employer] Subjective: Denied headache, chest pain, and lightheadedness throughout session. Objective: General Observation: Patient resting in bed. Avni wraps to left LE. Cryocuff to left knee. Nurse Maggy has set up patient for PT with walker and gait belt. Mental Status: A and O x 4 Pain: 2/10 on the L knee ROM: Right Lower Extremity: Hip flexion WFL. Hip abduction WFL. Knee flexion WFL. Ankle dorsiflexion WFL. Ankle plantarflexion WFL. Left Lower Extremity: Hip flexion WFL. Hip abduction WFL. Knee flexion 0-90 degrees. Ankle dorsiflexion WFL. Ankle plantarflexion WFL. Strength: Right Lower Extremity: Hip flexors 5/5. Hip abductors 5/5. Knee flexors 5/5. Knee extensors 5/5. Ankle dorsiflexors 5/5. Ankle plantarflexors 5/5. Left Lower Extremity:Hip flexors 5/5. Hip abductors 5/5. Knee flexors 3-/5. Knee extensors 4-/5. Ankle dorsiflexors 5/5. Ankle plantarflexors 5/5. Sensation: intact as to pain and light pressure in BLE Bed Mobility/Transfers: Minimal cueing provided for use of B hands as needed for support, movement sequence, AD management, and posture to reduce fall risk and minimize pain report Supine to sit with stand by assist Sit to stand with stand by assist with FWW Stand to sit stand onto toilet seat and chair with stand by assist with cues for hand placement and controlled descent Bed to chair stand by assist with FWW Gait: Facilitate safe and correct performance of level surface ambulation covering a distance of 150 feet using front wheeled walker with reciprocal heel toe gait pattern requiring only standby assist with minimal verbal cueing for weight distribution on shoe AD, limb advancement, and posture to decrease pain report and reduce fall risk. Stairs: Guided patient with safe and correct negotiation of 3 x 4-inch steps and 2 x 6-inch steps while holding onto bilateral rails with step to gait pattern requiring minimal verbal cueing to increase knee flexion on the left during each ascent hand placement, and posture to, decrease pain report and reduce fall risk Balance: Static Sitting: Normal Dynamic Sitting: Normal Static Standing: Fair Dynamic Standing: Fair Special Tests: Mobility Limitations Standardized Measure [facility] AM-PAC 6 clicks Basic Mobility Inpatient Short Form: Raw Score: 23 CMS Score: 11% deficit Informed Consent/Education: Patient instructed in purpose of PT consult. Packet containing TKA exercise protocol has been given to patient. Education and training on initial set of exercises that can be done at home have been completed with patient. Trained patient with correct performance of exercises below to maximize motor control, joint flexibility, soft tissue extensibility of the [] knee musculature: Access Code: [email or web address] URL: [email or web address] Date: 05/20/2024 Prepared by: Jammie Cordova Exercises - Supine Quad Set - 1 x daily - 7 x weekly - 1 sets - 10 reps - 5 hold - Supine Heel Slide - 1 x daily - 7 x weekly - 1 sets - 10 reps - 5 hold - Supine Ankle Pumps - 1 x daily - 7 x weekly - 1 sets - 10 reps - 5 hold - Small Range Straight Leg Raise - 1 x daily - 7 x weekly - 1 sets - 10 reps - 5 hold - Seated March - 1 x daily - 7 x weekly - 1 sets - 10 reps - 5 hold Assessment: Patient requires the use of a front wheeled walker for mobility ADL performance to maximize independence and reduce fall risk. Patient presents with clinical signs and symptoms consistent with current/admitting diagnoses that have resulted to mobility limitations, gait instability, generalized weakness, and impairment of motor control as demonstrated by the following impairment level findings: 1. Decreased strength to left knee major muscle groups 2. Impaired standing balance 3. Limitation of joint range of motion in left knee Impairments are contributing to the following functional limitations: 1. Inability to safely ambulate without assistive device 2. Increase completion time for mobility ADL performance 3. Increased fall risk Patient is assessed as a 24451 moderate complexity based on the following: History: 68-year-old male with impairment level findings, functional limitations, and past medical history as indicated above Examination: Demonstrable impairment in strength, balance, and mobility level with underlying impairments and functional limitations as documented above Presentation: Evolving Decision Makin moderate complexity Goals: N/A. PT evaluation and 1-2 treatment sessions only for functional mobility training using recommended AD and for HEP instruction. Plan of Care/Treatment Plan: N/A. PT evaluation and 1-2 treatment session only for functional mobility training using recommended AD and for HEP instruction. DISCHARGE RECOMMENDATIONS: Home when medically cleared by orthopedic surgeon. Recommend outpatient PT services in order to optimize functional mobility outcomes and facilitate return to independent community ambulation without an assistive device. TREATMENT CODE/TIME: 61470 x 25 minutes for 1 unit (16:23?16:47). Thank you for the opportunity to participate in the care of this patient. Please sign an return this page within 30 days if you agree with the above POC. Thank you! Physician Signature Date [facility] Jammie Cordova PT, DPT, CLT [facility] [place], [place]
== END 2024-05-20 17:25 | disposition home or self-care (01) ==
LOC: SUR 10:49
PROVIDERS: PCP Family Medicine; Visit Provider Student in an Organized Health Care Education/Training Program
PROC: (CPT 27447; principal; 2024-05-20 12:45)
DX: M17.12 Unilateral primary osteoarthritis, left knee (principal); I10 Essential (primary) hypertension; E78.5 Hyperlipidemia, unspecified; E03.9 Hypothyroidism, unspecified; G89.18 Other acute postprocedural pain
CPT/HCPCS: 27447; 64447; 97162; C1776; J0665; J0690; J1100; J1805; J2250; J2401; J2405; J2704

== ENCOUNTER 2024-07-06 15:50 | Outpatient (CLI) | payer BC, SELFPAY ==
--- NOTE | 2024-07-06 07:45 | DI.RAD_ITS ---
Exam(s) XR KNEE LT 1V XR STANDING ALIGNMENT EXAM: XR STANDING ALIGNMENT and XR knee LT 1 V CLINICAL HISTORY: S/P L TKA. TECHNIQUE: 2D digital imaging was performed. Five images were obtained. COMPARISON: CR XR STANDING ALIGNMENT from 04/13/2024 CR XR KNEE RT 1V from 04/13/2024 FINDINGS: BONES: The hips are well maintained. The patient had a prior right total knee arthroplasty which lety ears stable. Since the prior examination, the patient has undergone a left total knee arthroplasty. The orthopedic hardware appears in good position. The ankles are well maintained.There is no signif icant leg length discrepancy. SOFT TISSUE: Normal. IMPRESSION: Bilateral total knee arthroplasties. DATA REPOSITORY: RADIATION DOSE DELIVERED:
== END 2024-07-06 15:51 | disposition home or self-care (01) ==
LOC: DIORS 15:50
PROVIDERS: PCP Family Medicine; Visit Provider Physician Assistant
DX: Z96.652 Presence of left artificial knee joint (principal); Z47.1 Aftercare following joint replacement surgery
CPT/HCPCS: 73560; 77073

== ENCOUNTER 2024-09-09 17:10 | Emergency (ER) | payer BC, SELFPAY ==
[2024-09-09 17:12] VITALS: BP 212/101; PULSE 74; RESP 20; TEMP 36.5; O2SAT 98
--- NOTE | 2024-09-09 17:15 | DI.RAD_ITS ---
Exam(s) XR TIB/FIB LT EXAM: XR TIB/FIB LT CLINICAL HISTORY: pain s/p wood falling on mid tibia. TECHNIQUE: 2D digital imaging was performed. COMPARISON: CR XR STANDING ALIGNMENT from 07/06/2024 FINDINGS: Two views On the AP view there is a subtle suggestion of a possible very subtle vertically orientated fracture line in the medial malleolus. However, there is no overlying soft tissue swelling. No other fractur e sites evident. There is a left knee prosthesis noted IMPRESSION: Findings in the medial malleolus as above. Recommend dedicated three views of the left ankle if ther e is clinical suspicion for fracture at this level. DATA REPOSITORY: RADIATION DOSE DELIVERED:
--- NOTE | 2024-09-09 17:24 | ED.GENADUL_ITS ---
Discharge Plan Disposition Patient Disposition: Home Condition: Stable Discharge Details Clinical Impression: Hematoma of left lower leg Primary Care Provider: Julio Cesar Sanderson ED Provider: Rhett Reed [place] Meds and New Rx's Prescriptions: Continued coenzyme Q10 [Co Q-10] 10 mg capsule 10 mg PO ONCE mecobalamin (vitamin B12) [B12 Active] 1,000 mcg tablet,chewable 1,000 mcg PO DAILY melatonin 10 mg capsule 10 mg PO HS PRN benfotiamine 150 mg capsule 150 mg PO DAILY chromium picolinate 200 mcg tablet 200 mcg PO DAILY levothyroxine 300 mcg tablet 300 mcg PO DAILY docusate sodium 100 mg capsule 100 mg PO DAILY losartan 100 mg tablet 100 mg PO DAILY acetaminophen 500 mg capsule 1,000 mg PO TID PRN (Reason: fever) Qty: 180 0RF ascorbic acid (vitamin C) [Vitamin C] 500 MG tablet 500 mg PO DAILY multivitamin 1 EACH capsule 1 ea PO DAILY resveratrol 100 MG capsule 100 mg PO DAILY amlodipine 10 MG tablet 10 mg PO DAILY Qty: 90 metformin 1,000 mg tablet 1,000 mg PO BID Discontinued aspirin 325 mg tablet 325 mg PO DAILY milk thistle 175 mg tablet 175 mg PO DAILY Rx Instructions: give with meal/snack alpha lipoic acid 300 mg capsule 300 mg PO DAILY chlorthalidone 25 mg tablet 25 mg PO DAILY pantoprazole 40 mg tablet,delayed release (DR/EC) 40 mg PO DAILY Qty: 60 0RF tirzepatide 2.5 mg/0.5 mL pen injector 2.5 mg subcut QWEEK Rx Instructions: for 4 weeks Discharge Instructions Additional Instructions: Your x-ray did not show any broken bones. This hematoma should resolve on its own in a week or 2. You can try and keep it elevated and ice understanding laying down. If you are being continued pain in a week follow-up with your primary care provider. If you feel more ill or have severe worsening pain return to the emergency department for reevaluation HPI General Mode of arrival: ambulatory . Date/Time Provider Initiated Documentation: 09/09/24 17:15 . Limitations to Documentation: no limitations . Information obtained by: patient . History of Present Illness 68 year old M presents to the emergency department with the chief complaint of left mid tibia pain s/p wood falling on leg, described as moderate, Quality is described as aching, and is localized to the left and lower extremity. and it has been constant. No relieving factors improve symptom(s), No exacerbating factors reported . Patient notes no other symptoms.. Patient did receive the following treatments prior to arrival, none Related Data Home Medications ?Medication ?Instructions ?Recorded ?Confirmed ascorbic acid (vitamin C) 500 mg 500 mg PO DAILY 01/06/13 09/09/24 tablet (Vitamin C) multivitamin 1 ea PO DAILY 01/06/13 09/09/24 resveratrol 100 mg capsule 100 mg PO DAILY 05/05/13 09/09/24 amlodipine 10 mg tablet 10 mg PO DAILY #90 tab-caps 12/03/16 09/09/24 docusate sodium 100 mg capsule 100 mg PO DAILY 08/05/23 09/09/24 levothyroxine 300 mcg tablet 300 mcg PO DAILY 08/05/23 09/09/24 losartan 100 mg tablet 100 mg PO DAILY 08/05/23 09/09/24 coenzyme Q10 10 mg capsule (Co 10 mg PO ONCE 11/15/23 09/09/24 Q-10) metformin 1,000 mg tablet 1,000 mg PO BID 03/18/24 09/09/24 benfotiamine 150 mg capsule 150 mg PO DAILY 03/23/24 09/09/24 chromium picolinate 200 mcg tablet 200 mcg PO DAILY 03/23/24 09/09/24 mecobalamin (vitamin B12) 1,000 1,000 mcg PO DAILY 03/23/24 09/09/24 mcg chewable tablet (B12 Active) melatonin 10 mg capsule 10 mg PO HS PRN 03/23/24 09/09/24 acetaminophen 500 mg capsule 1,000 mg (2 x 500 mg) PO TID PRN 06/04/24 09/09/24 fever #180 caps Previous Rx's ?Medication ?Instructions ?Recorded acetaminophen 500 mg capsule 1,000 mg (2 x 500 mg) PO TID PRN 06/04/24 fever #180 caps Allergies Allergy/AdvReac Type Severity Reaction Status Date / Time No Known Allergies Allergy Verified 09/09/24 17:16 General Stated Complaint: Orthopedic MASTER: 3 Review of Systems All systems reviewed & are unremarkable except as noted in HPI and below Constitutional Constitutional: Denies chills and Denies fever(s) Cardiovascular Cardiovascular: Denies chest pain and Denies dyspnea Respiratory Respiratory: Denies cough and Denies dyspnea Gastrointestinal Gastrointestinal: Denies abdominal pain, Denies nausea and Denies vomiting Psychiatric Psychiatric: Denies depression Exam Const General: no acute distress Orientation: alert HENMT Head: normal to inspection Ears: external ears normal General nose exam: external nose normal Mouth: moist mucous membranes Eyes General: appearance normal, both eyes and all related structures Neck Neck: normal visual inspection Resp Effort & Inspection: normal respiratory effort and able to speak in complete sentences Cardio Rate: regular rate Skin General skin exam: no rashes or lesions noted Neuro General: patient alert and patient oriented x3 Extrem General: full ROM and capillary refill normal Psych Mental Status: mental status grossly normal Course Vital Signs Vital signs: Vital Signs Temperature 36.5 C 09/09/24 17:12 Pulse 74 09/09/24 17:12 Respiratory Rate 20 09/09/24 17:12 Blood Pressure 212/101 H 09/09/24 17:12 Pulse Oximetry 98 09/09/24 17:12 Temperature 36.5 C 09/09/24 17:12 Pulse 74 09/09/24 17:12 Respiratory Rate 20 09/09/24 17:12 Blood Pressure 212/101 H 09/09/24 17:12 Blood Pressure Position Sitting 09/09/24 17:12 Pulse Oximetry 98 09/09/24 17:12 Oxygen Delivery Method Room Air 09/09/24 17:12 Oxygen Flow Rate 0 09/09/24 17:12 Medical Decision Making 68-year-old male comes in with left lower leg injury. He says he was stacking wood when 1 piece of wood about 50 pounds fell a few feet and landed on his left anterior tibia. He did not fall or sustain other injuries, did not hit his head. He has a 2 x 3 cm hematoma on the right anterior lateral mid tibia area. He has full range of motion of his knee and ankle and foot without any pain in these areas. I suspect he has a hematoma, will obtain x-rays to evaluate for fracture Patient stable, x-ray shows no acute findings, there was a question of a medial malleoli potential small fracture but he has no pain in this area so do not feel it is fractured. He is stable for discharge home follow-up with his PCP, return precautions given Differential Diagnosis Differential Diagnosis: Hematoma, contusion Quality:SDOH Health Related Social Needs: No Data to Display PFSH All Active Problems (Updated 09/09/24 @ 17:43 by Rhett Reed MD) Hematoma of left lower leg (Acute) History of total left knee replacement (Acute 05/20/24) History of total right knee replacement (Acute 03/31/24) Diabetes (Chronic) Essential hypertension (Acute 03/31/13) Medical History (Updated 09/09/24 @ 17:43 by Rhett Reed MD) Tubular adenoma 06/12; 2 tubular adenomas Sleep apnea (05/24/14) Polyp of colon 06/12; 2 tubular adenomas Nevus, non-neoplastic (01/12/13) atypical Lipoma Arthritis of left knee (12/02/15) Hypertension Hyperlipidemia Hypothyroid Surgical History Status post thyroidectomy Status post inguinal hernia repair History of local excision of skin lesion Thyroid (~2006) COMPLETE THYROIDECTOMY, DR. EARL Repair of inguinal hernia DR. LOCKE Excision, Skin Mass Colonoscopy - IV Sedation 06/17/2006 Family History Mother Heart disease CABG Father Hypertensive disorder, systemic arterial Hyperlipidemia Brother Personal history of malignant neoplasm PROSTATE Brother Parkinson's disease Brother No problems noted. Grandfather Heart disease Grandfather No problems noted. Grandmother Heart disease Grandmother Hypertensive disorder, systemic arterial Heart disease Social History Smoking/Tobacco Use Status: Former Tobacco Use Quit Date: 07/01/95 Smoking risk assessment performed?: Yes Alcohol Intake: current Alcohol Intake frequency: holidays/special occasions only Drug use: Never Substance use type: does not use Housing: house Do you feel safe at home: Yes Do you feel safe in your relationship?: Yes PAWSS Have you Been Recently Intoxicated or Drunk Within the Last 30 days?: No Have you Ever Experienced Previous Episodes of Alcohol Withdrawal?: No Have you ever Experienced Withdrawal Seizures?: No Have you ever Experienced Delirium Tremens(DT)s?: No Have you ever undergone Alcohol Rehabilitation Treatment (i.e, inpt ot outpatient treatment programs)?: No Have you ever Experienced Blackouts?: No Have you ever Combined Alcohol with other Downers within the last 90 days?: No Have you ever Combined Alcohol with any other Substance of Abuse during the last 90 days?: No Positive Blood Alcohol level on Presentation? [PCS.BAL]: No Evidence of Increased Autonomic Activity (i.e. HR>120, tremor, sweating, agitation, nausea)?: No Result: 0
== END 2024-09-09 18:03 | disposition home or self-care (01) ==
LOC: ER 17:54
PROVIDERS: Emergency Provider Emergency Medicine; PCP Family Medicine
DX: S80.12XA Contusion of left lower leg, initial encounter (principal); I10 Essential (primary) hypertension; E78.5 Hyperlipidemia, unspecified; E03.9 Hypothyroidism, unspecified; E11.9 Type 2 diabetes mellitus without complications; Z79.84 Long term (current) use of oral hypoglycemic drugs; Z87.891 Personal history of nicotine dependence
CPT/HCPCS: 99283; 73590

== ENCOUNTER 2025-05-24 10:35 | Outpatient (CLI) | payer BC, SELFPAY ==
--- NOTE | 2025-05-24 08:08 | DI.RAD_ITS ---
Exam(s) XR KNEE LT 2V AP,LAT EXAM: XR KNEE LT 2V AP,LAT CLINICAL HISTORY: ANNUAL F/U L TKA. TECHNIQUE: 2D digital imaging was performed. Two images were obtained. AP and lateral views were obtained. COMPARISON: CR XR KNEE RT 3V AP,LAT,CARIN from 08/05/2023 CR XR STANDING ALIGNMENT from 04/13/2024 CR XR STANDING ALIGNMENT from 07/06/2024 CR XR KNEE LT 1V from 07/06/2024 CR XR TIB/FIB LT from 09/09/2024 FINDINGS: BONES: There are stable post operative changes of a left total knee arthroplasty present. No fracture or dislocation. JOINTS: The orthopedic hardware is in good position. No evidence of hardware loosening. There may be a small joint effusion. SOFT TISSUE: Atherosclerotic calcification is present. IMPRESSION: Stable left total knee arthroplasty. DATA REPOSITORY: RADIATION DOSE DELIVERED:
--- NOTE | 2025-05-24 08:08 | DI.RAD_ITS ---
Exam(s) XR KNEE RT 2V AP,LAT EXAM: XR KNEE RT 2V AP,LAT CLINICAL HISTORY: ANNUAL F/U R TKA. TECHNIQUE: 2D digital imaging was performed. Three images were obtained. AP and lateral views were obtained. COMPARISON: CR XR KNEE RT 3V AP,LAT,CARIN from 08/05/2023 CR XR KNEE RT 1V from 04/13/2024 CR XR STANDING ALIGNMENT from 04/13/2024 CR XR STANDING ALIGNMENT from 07/06/2024 FINDINGS: BONES: There are stable post operative changes of a right total knee arthroplasty present. There are lucencies now seen on the AP view in the superior aspect of the patella. There also new osseous fragments seen in the suprapatellar region. The findings are suspicious for displaced superior patellar fracture. JOINTS: The orthopedic hardware is in good position. No evidence of hardware loosening. SOFT TISSUE: Normal. IMPRESSION: 1. Comminuted fracture involving the superior aspect of the right patella. This is new since prior examination. 2. Otherwise unremarkable right total knee arthroplasty. DATA REPOSITORY: RADIATION DOSE DELIVERED:
== END 2025-05-24 10:36 | disposition home or self-care (01) ==
LOC: DIORS 10:36
PROVIDERS: PCP Family Medicine; Visit Provider Student in an Organized Health Care Education/Training Program
DX: Z96.651 Presence of right artificial knee joint (principal); Z96.652 Presence of left artificial knee joint
CPT/HCPCS: 73560